=== PATIENT | female | born 1940 | race Caucasian/White ===

== ENCOUNTER 2022-02-27 10:12 | Outpatient (CLI) | payer MEDICARE, SELFPAY ==
[2022-02-27 15:02] LABS: Albumin* 4.2 g/dL (3.3-5.0)
[2022-02-27 15:03] LABS: Chloride* 106 mmol/L (96-114); Potassium* 4.5 mmol/L (3.6-5.1); Sodium* 141 mmol/L (135-149)
[2022-02-27 15:05] LABS: Alkaline Phosphatase* 61 U/L (40-150); Aspartate Amino Transferase* 32 U/L (12-35); Bilirubin Total* 0.6 mg/dL (0.1-1.5); Blood Urea Nitrogen* 18 mg/dL (7-30); Carbon Dioxide* 30 mmol/L (20-32); Cholesterol* 183 mg/dL (90-199); Creatinine* 0.8 mg/dL (0.5-1.5); Estimated Glomerular Filt Rate 73 ml/min; Total Protein* 6.9 g/dL (6.0-8.3)
[2022-02-27 15:06] LABS: Alanine Aminotransferase* 23 U/L (4-35); Calcium* 9.7 mg/dL (8.4-10.6); Glucose* 99 mg/dL (60-115); HDL Cholesterol* 75 mg/dL (>=50); LDL Cholesterol Calculated 81 mg/dL (<100); Triglycerides* 136 mg/dL (40-149)
== END 2022-02-27 10:13 | disposition home or self-care (01) ==
PROVIDERS: PCP Physician Assistant Medical; Visit Provider Physician Assistant Medical
DX: Z00.00 Encounter for general adult medical examination without abnormal findings (principal); E03.8 Other specified hypothyroidism; E78.5 Hyperlipidemia, unspecified; I10 Essential (primary) hypertension
CPT/HCPCS: 80053; 80061; 84443

== ENCOUNTER 2022-04-09 14:26 | Outpatient (CLI) | payer MEDICARE, SELFPAY ==
--- NOTE | 2022-04-09 15:00 | CRLHL7_ITS ---
For Patients: As a result of the Cures Act, medical imaging exams and procedure reports are released immediately into your electronic medical record. You may view this report before your referring provider. If you have questions, please contact your health care provider. DXA BONE MINERAL DENSITY STUDY, 04/09/2022 Reason for exam: Screening. Current height (inches): 65.0 Weight (lbs.): 148.0 Menopause age: 43 Ethnicity: White 1. Have you had a previous hip or vertebral fracture? No. 2. Have you had any fractures during your adult life which did not result from significant trauma (e.g., auto accident)? No. 3. Did either of your parents have a hip fracture? No. 4. Do you smoke? No. 5. Have you ever taken Glucocorticoids? No. 6. Do you have rheumatoid arthritis? No. 7. Do you have secondary osteoporosis? Yes. 8. Do you drink 3 or more alcoholic drinks per day? No. 9. Are you being treated for osteoporosis? Yes. 10. Have you ever taken any of the following medications: Actonel, Evista, Fosamax, Miacalcin, Reclast, Boniva, Forteo, HRT (i.e., estrogen/hormone therapy), Protelos, Prolia, Vitamin D, Calcium, other ??? please specify. ANSWER: Yes; Fosamax, vitamin D, HEART RATE, calcium. 11. Do you have any of the following medical conditions: Anorexia or bulimia, asthma or emphysema, end stage renal disease, hyperparathyroidism, any seizure disorders, cancer, inflammatory bowel diseases, hysterectomy, other ??? please specify. ANSWER: Yes; hysterectomy. 12. What was your maximum height (inches)? 66. 13. Do you perform weightbearing exercise regularly? No. 14. Do you regularly consume dairy products? No. 15. Do you drink caffeinated beverages? Yes. 16. At what age did your period start? 10. 17. Are you premenopausal? No. 18. How many full-term pregnancies have you had? 1. 19. Have you ever missed your period for more than 6 months in a row (not including or menopause)? No. TECHNIQUE: Bone mineral density study was performed using the [employer]. FINDINGS: The results of the study expressed as bone mineral density (BMD) are as follows: Lumbar Spine L1 to L4: BMD: 1.069 g/cm2. T-score: 0.2. Z-score: 3.0. Neck Left: BMD: 0.639 g/cm2. T-score: -1.9. Z-score: 0.6. Right: BMD: 0.642 g/cm2. T-score: -1.9. Z-score: 0.6. Total Left: BMD: 0.736 g/cm2. T-score: -1.7. Z-score: 0.6. Right: BMD: 0.683 g/cm2. T-score: -2.1. Z-score: 0.2. IMPRESSION: Osteopenia. COMPARISON: Compared with scan of 04/04/2020, the bone mineral density has increased by 2.9% at the spine and increased by 4.4% at the hip. *Comparison exams done prior to 08/2019 were performed on different unit, [facility]. PARDEEP HOYOS M.D. Diagnostic Radiologist [email or web address] Transcribed: 4:[address]/Dictated by: Pardeep Hoyos MD @ 04/09/2022 3:42:00 PM (Electronically Signed)
== END 2022-04-09 14:27 | disposition home or self-care (01) ==
LOC: RAD 14:28
PROVIDERS: PCP Physician Assistant Medical; Visit Provider Physician Assistant Medical
DX: Z13.820 Encounter for screening for osteoporosis (principal); M85.89 Other specified disorders of bone density and structure, multiple sites; Z78.0 Asymptomatic menopausal state
CPT/HCPCS: 77080

== ENCOUNTER 2022-06-11 10:03 | Outpatient (CLI) | payer MEDICARE, SELFPAY | END 2022-06-11 10:04 | disposition home or self-care (01) | LOC: NFLDREF 06-13 02:05 | PROVIDERS: PCP Physician Assistant Medical; Referring Provider Physician Assistant Medical; Visit Provider Physician Assistant Medical | DX: N39.0 Urinary tract infection, site not specified (principal) | CPT/HCPCS: 87086 ==

== ENCOUNTER 2022-09-17 09:54 | Outpatient (CLI) | payer MEDICARE, SELFPAY ==
[2022-09-17 23:25] LABS: Free T4 Free Thyroxine* 0.91 ng/dL (0.70-1.85)
== END 2022-09-17 09:55 | disposition home or self-care (01) ==
PROVIDERS: PCP Physician Assistant Medical; Visit Provider Obstetrics & Gynecology
DX: E03.8 Other specified hypothyroidism (principal); R35.0 Frequency of micturition
CPT/HCPCS: 84439; 84443; 87086; 87186

== ENCOUNTER 2023-02-03 14:03 | Outpatient (CLI) | payer MEDICARE, SELFPAY ==
--- NOTE | 2023-02-03 14:30 | CRLHL7_ITS ---
For Patients: As a result of the Century Cures Act, medical imaging exams and procedure reports are released immediately into your electronic medical record. You may view this report before your referring provider. If you have questions, please contact your health care provider. INDICATION: Headaches. TECHNIQUE: Multiplanar multisequence noncontrast MR images acquired through the brain. COMPARISON: MRI brain 07/31/2009. FINDINGS: Prominence of the ventricles and sulci compatible with [id number] diffuse cerebral volume loss, modestly progressed. No mass effect or midline shift. Scattered FLAIR hyperintensities in the supratentorial white matter have modestly progressed, and are typical for mild chronic microvascular ischemic changes. No intracranial hemorrhage or pathologic extra-axial fluid collection. No diffusion restriction to suggest acute infarction. The major arterial flow voids of the skullbase are preserved. Thinning of the ocular lenses. Mild paranasal sinus mucosal thickening. The mastoid air cells are clear. IMPRESSION: 1. No acute infarction, mass effect, or intracranial hemorrhage. 2. Jllf-ox-brantzzy diffuse cerebral volume loss and mild chronic microvascular ischemic changes have modestly progressed compared to the prior MRI. Dictated by Go Magallon MD @ 02/03/2023 9:19:50 PM (Electronically Signed)
== END 2023-02-03 14:04 | disposition home or self-care (01) ==
LOC: MRI 14:06
PROVIDERS: PCP Physician Assistant Medical; Visit Provider Physician Assistant Medical
DX: R51.9 Headache, unspecified (principal); I67.82 Cerebral ischemia
CPT/HCPCS: 70551

== ENCOUNTER 2023-03-03 09:36 | Outpatient (CLI) | payer MEDICARE, SELFPAY | END 2023-03-03 09:37 | disposition home or self-care (01) | LOC: NFLDREF 03-05 08:17 | PROVIDERS: PCP Physician Assistant Medical; Referring Provider Physician Assistant Medical; Visit Provider Physician Assistant Medical | DX: I10 Essential (primary) hypertension (principal); R11.2 Nausea with vomiting, unspecified; K25.9 Gastric ulcer, unspecified as acute or chronic, without hemorrhage or perforation; E03.8 Other specified hypothyroidism; E78.2 Mixed hyperlipidemia; F41.9 Anxiety disorder, unspecified; K21.00 Gastro-esophageal reflux disease with esophagitis, without bleeding; N39.41 Urge incontinence; M81.0 Age-related osteoporosis without current pathological fracture | CPT/HCPCS: 80053; 80061; 84443 ==

== ENCOUNTER 2023-03-20 09:56 | Outpatient (CLI) | payer MEDICARE, SELFPAY | END 2023-03-20 09:57 | disposition home or self-care (01) | LOC: NFLDREF 03-22 10:26 | PROVIDERS: PCP Physician Assistant Medical; Referring Provider Physician Assistant Medical; Visit Provider Family Medicine | DX: R35.0 Frequency of micturition (principal); M54.50 Low back pain, unspecified | CPT/HCPCS: 87086; 87186 ==

== ENCOUNTER 2023-10-20 14:45 | Outpatient (RCR) | payer MEDICARE, SELFPAY ==
--- NOTE | 2023-09-29 15:19 | PT.OPE ---
PT [facility] PT [facility] Out[facility] Eval Start: 09/28/23 17:15 Freq: Status: Active Protocol: Document 09/29/23 13:41 LSL (Rec: 09/29/23 15:07 LSL [id number]) E-signed By Brianna Heller PT Physical Therapy Outpatient Evaluation Insurance Information Recert Due Date 12/28/23 Insurance Name Medicare B,[employer] Insurance Information/Comments replacement plan PPO Medical Diagnosis chronic neck pain Treating Diagnosis impaired ROM, weakness, pain Referring ALICE Finch Subjective Subjective Pt. reports she had COVID in the end of December and she fell or passed out and hit her armoire. She hit her head when she fell and since then I have had so much neck and head pain. Pt. reports her pain is worst in the morning and rates it a 9/10 and it radiates to the top of her head and it feels like it's going to blow off and radiates into my shoulders and my arm feels weak and shaky. She reports a hot shower really helps make her feel better and then after she is up and functioning for the day she may need an OTC pain med in the afternoon as her headache starts to return. Pt. is R hand dominant. PMH: osteoporosis DIAGNOSTIC - cervical x-rays Findings: Disc space narrowing endplate hypertrophy throughout the cervical spine greatest at C3-4, C4-5 and C5- 6 and C6-7. Grade 1 anterolisthesis at C4-5 and C7 -T1. Diffuse facet arthrosis. Pain Comments 9/10 worst, 1-2/10 best Date of Last Physician Visit 09/22/23 Current Work Status Retired Precautions Therapy Limitations/Systems Review Other Medical Problem Objective Range of Motion AROM cervical flexion WNL, extension 25% with increased excursion on the L, B rotation 50%, B LF 10% shoulders - WFL B with pulling in mid to lower thoracic with (HBB) IR PROM - limited in all planes except flexion but without anything remarkably painful Strength Cervical - all 5/5 with flexion causing pain at the C- T junction Shoulders - grossly 4+-5/5 with hor abduction R 4/5, L 3+ /5 and B scaption 4/5 Talent Coordinator - R 43, L 41 Palpation suboccipital region very tender, B scalenes very tight and tender, B SCM R>L tight and tender, Posture mild forward head and dowager' s hump, laying supine head is rotated R and when corrected to neutral she can maintain but she feels crooked. Sensation/Reflexes Compression and distraction negative Reflexes - intact B Other/Pertinent Objective Joint Play - tender to AP at C3, C4, R mid cervical downglides restricted Assessment Assessment/Impression Pt. is an 83 y/o female who presents with chronic cervical pain that began after hitting her head during a fall when she had COVID last December. She is having chronic headaches that are most significant in the morning. She was concerned about the noise she hears when she turns her neck but she was reassured that this is common with arthritic changes and is nothing to be concerned about and she was also relieved to hear that her tight muscles at the base of her neck are causing her severe headaches and that it isn't a tumor. She has a resting position of R cervical rotation with muscular tenderness and tension in the suboccipital region and with decreased cervical mobility especially in the mid to lower cervical region on the R. She will benefit from PT utilizing manual therapy, therex, NM re- ed and modalities prn to improve her mobility and decrease tension in her cervical region. Primary Functional Limitations getting up from sleeping Plan of Care Rehabilitation Potential Good Physical Therapy Goals SHORT TERM GOALS: (3 weeks) 1. Pt. to have 4/5 or greater shoulder strength to support her neck. 2. Pt. to report decreased headache intensity to less than 5/10 when she awakes. 3. Pt. to report decreased need for OTC pain meds in midafternoon to less than 2x/ week. BREAD ROOM HAND GOALS: (6 weeks) 1. Pt. to report pain of no greater than 2/10 when she wakes in the morning. 2. Pt. to have improved cervical mobility in the R mid to lower cervical spine to allow more lateral flexion and equal extension. Coordination/Communication With Referral Source Treatment Plan/Direct Interventions Joint Mobilization,Manual Therapy,Neuromuscular Re-ed, Self-Care/Home Management, Therapeutic Exercises Frequency/Duration 2x/week 4 weeks Patient Will Be Discharged From Therapy Completion of LTG(s),Skills Plateau,Independent w/HEP, Independently Progressing Evaluation Billing Untimed Code Treatment Minutes 35 Complexity Low Certification Information Initial Certification Date 09/29/23 Ending Certification Date 12/28/23 Provider Signature Required Yes Provider Signature Shows Agreement With POC & Medical Necessity Physician NPI Number Write NPI# Here Physician Comment/Change : Physician Signature & Date Requested Please Sign/Date Here
== END 2024-01-05 10:26 | disposition home or self-care (01) ==
PROVIDERS: PCP Physician Assistant Medical; Visit Provider Physician Assistant Medical
DX: M54.2 Cervicalgia (principal); G89.29 Other chronic pain; R53.1 Weakness; Z51.89 Encounter for other specified aftercare
CPT/HCPCS: 97110; 97140; 97161

== ENCOUNTER 2024-01-26 09:33 | Outpatient (CLI) | payer MEDICARE, SELFPAY | END 2024-01-26 09:34 | disposition home or self-care (01) | LOC: NFLDREF 01-27 11:56 | PROVIDERS: PCP Physician Assistant Medical; Referring Provider Physician Assistant Medical; Visit Provider Physician Assistant Medical | DX: N30.00 Acute cystitis without hematuria (principal) | CPT/HCPCS: 87086; 87186 ==

== ENCOUNTER 2024-03-15 08:49 | Outpatient (CLI) | payer MEDICARE, SELFPAY | END 2024-03-15 08:50 | disposition home or self-care (01) | LOC: NFLDREF 03-16 05:35 | PROVIDERS: PCP Physician Assistant Medical; Referring Provider Physician Assistant Medical; Visit Provider Physician Assistant Medical | DX: E78.2 Mixed hyperlipidemia (principal); I10 Essential (primary) hypertension; E03.8 Other specified hypothyroidism; M81.0 Age-related osteoporosis without current pathological fracture | CPT/HCPCS: 80053; 80061; 84439; 84443 ==

== ENCOUNTER 2024-04-11 13:37 | Emergency (ER) | payer MEDICARE, SELFPAY ==
[2024-04-11] VITALS (8 sets, daily range): BP systolic 110–163; BP diastolic 60–97; PULSE 71–87; RESP 18; TEMP 35.7; O2SAT 89–100; BMI 22.6
[2024-04-11 14:14] LABS: Basophils Percent Auto 0.4 % (0.0-3.0); Eosinophils Percent Auto 1.7 % (0.0-7.0); Hematocrit 39.6 % (33.0-51.0); Hemoglobin* 12.9 gm/dL (12.0-16.0); Immature Granulocytes Pct Auto 0.4 %; Lymphocytes Percent Auto 12.5 % (20-44); Mean Corpuscular HGB Conc 33 gm/dL (32-36); Mean Corpuscular Hemoglobin 30 pg (26-34); Mean Corpuscular Volume 93 fL (80-100); Monocytes Percent Auto 7.9 % (0.0-11.0); Neutrophils Percent Auto 77.1 % (42.0-72.0); Platelet Count* 220 K/uL (140-440); RDW Coefficient of Variation % 13.3 % (11.5-15.5); Red Blood Count 4.26 m/uL (4.00-5.20); White Blood Count* 11.81 K/uL (4.50-11.00)
[2024-04-11] MEDS: MECLIZINE HCL 25 MG TABLET PO ×2 (14:19→14:59)
[2024-04-11 14:26] LABS: Slide Review Reflex No
[2024-04-11 14:28] LABS: Chloride* 103 mmol/L (96-114); Potassium* 4.3 mmol/L (3.6-5.1); Sodium* 136 mmol/L (135-149)
[2024-04-11 14:31] LABS: Anion Gap 11 mEq/L (7-15); Blood Urea Nitrogen* 20 mg/dL (7-30); Carbon Dioxide* 22 mmol/L (20-32); Creatinine* 0.9 mg/dL (0.5-1.5); Estimated Glomerular Filt Rate 62 ml/min
[2024-04-11 14:32] LABS: Calcium* 9.6 mg/dL (8.4-10.6); Glucose* 170 mg/dL (60-115)
--- NOTE | 2024-04-11 14:36 | ED_ITS ---
HPI - General Adult General Chief complaint: Nausea/Vomiting Stated complaint: nausea, vomiting Time Seen by Provider: 04/11/24 13:45 History of Present Illness HPI narrative: This 84-year-old female comes in by ambulance because of vertigo, nausea, and vomiting. She states that these symptoms came on rather suddenly prior to arrival. She does report some upper epigastric abdominal discomfort. She does not have any other neurologic findings besides vertigo symptoms. She states th at if she remains still and look straight ahead her vertigo symptoms are minimal or absent. It is distinctly worsened when turning her head in any direction. Related Data Home Medications ?Medication ?Instructions ?Recorded ?Confirmed calcium 600 mg (as 1 tab PO QDAY 02/27/22 03/24/24 carbonate)-vitamin D3 20 mcg (800 unit) tablet (Caltrate with Vitamin D3) omeprazole 20 mg capsule,delayed 20 mg PO .prn 03/24/24 release Previous Rx's ?Medication ?Instructions ?Recorded sertraline 50 mg tablet 50 mg PO DAILY #90 tabs 01/29/24 alendronate 70 mg tablet (Fosamax) 70 mg PO QWEEK 3 months #12 tabs 02/04/24 lisinopril 30 mg tablet 15 mg (1/2 x 30 mg) PO DAILY #45 03/15/24 tabs simvastatin 20 mg tablet 20 mg PO DAILY #90 tabs 03/15/24 solifenacin 10 mg tablet 10 mg PO QDAY #90 tabs 03/15/24 Allergies Allergy/AdvReac Type Severity Reaction Status Date / Time No Known Drug Allergies Allergy Verified 03/24/24 09:35 Review of Systems Status of ROS: Reports: 10 or more systems reviewed and unremarkable except as noted in History and below Narrative: Constitutional: No fevers, no weight gain or loss. Eyes: No discharge. No vision changes. HENT: No congestion, no sore throat, no ear pain. Cardiovascular: No chest pain, no palpitations. Respiratory: No shortness of breath, no wheezes, no cough. Gastrointestinal: No abdominal pain, no vomiting, no diarrhea. Genitourinary: No dysuria, no hematuria. Musculoskeletal: Normal range of motion. Skin: No rashes, no pruritis. Neurological: No weakness, sensory change, speech change. Vertigo symptoms as described above. Endo/Heme/Allergies: No bruising or bleeding. No polydipsia. Pysch: no suicidality, no anxiety, no insomnia. All other systems reviewed and are negative. 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) ?L90.0 - Lichen sclerosus et atrophicus (ICD-10) Gastric ulcer ?K25.9 - Gastric ulcer, unspecified as acute or chronic, without hemorrhage or perforation (ICD-10) Urinary tract infection ?N39.0 - Urinary tract infection, site not specified (ICD-10) Uterine leiomyoma ?D25.9 - Leiomyoma of uterus, unspecified (ICD-10) Surgical History History of hysterectomy with oophorectomy History of eye surgery ?Z98.890 - Other specified postprocedural states (ICD-10) History of colonoscopy ?Z98.890 - Other specified postprocedural states (ICD-10) Family History Mother Breast cancer Diabetes High blood pressure High cholesterol Father Coronary artery disease High cholesterol Sister Coronary artery disease Diabetes High cholesterol Social History Narrative: does not drink alcohol, does not use illicit drugs, nonsmoker What is your current living situation?: I presently have a place to live Problems where you live: no known problems In the past 12 months, utilities in danger of being shut off: no In past 12 months, lack of transportation kept you from medical appts, meetings, work, or getting things needed for daily living: no In the past 12 mos, have been you worried that your food would run out before you had money to buy more?: never true In the past 12 mos, the food you bought just didn't last and you didn't have money to buy more?: never true Smoking Status: Never smoker How often does anyone, including family, friends and others, physically hurt you : never How often does anyone, including family, friends and others, insult or talk down to you: never How often does anyone, including family, friends and others, threaten you with harm: never How often does anyone, including family, friends and others, scream or curse at you: never Exam Narrative: Exam Narrative: Constitutional: Well-developed, well-nourished, no acute distress. HEENT: Normocephalic, atraumatic. Neck: Normal range of motion. Nontender. Supple. Heart: Regular. No murmurs. Normal rate. Intact distal pulses. Lungs: Clear to auscultation. No chest discomfort. No wheezes, rhonchi, or rales . Abdomen: Normal bowel sounds. Nontender. No rebound tenderness. Genitalia: Deferred. Back: No midline tenderness. Normal range of motion. Extremities: Normal range of motion. No injury. Skin: Intact. No rash. Warm. No erythema or pallor. Neurologic: No altered sensation. No weakness. Alert and oriented. No facial asymmetry. Tongue is midline. Sqwoge-hb-eplv is normal. No pronator drift. Cottage Cheese Maker strength is equal bilaterally. Able to raise each leg from the bed. Psychiatric: No suicidality. No anxiety or depression. No insomnia. Nursing notes and vitals signs are reviewed. Const: Vital Signs, click to edit/add: Vital Signs - 24 hr 04/11/24 13:39 04/11/24 14:10 04/11/24 14:32 Temperature 96.3 F L Pulse Rate 71 73 Pulse Rate [Pulse Oximeter] 84 Respiratory Rate 18 Blood Pressure 150/72 H 156/71 H Blood Pressure [Ri ght Upper Arm] 163/97 H Pulse Oximetry 98 100 100 Oxygen Delivery Me thod Room Air 04/11/24 15:02 04/11/24 15:31 Temperature Pulse Rate 74 79 Pulse Rate [Pulse Oximeter] Respiratory Rate 18 Blood Pressure 110/60 122/71 Blood Pressure [Ri ght Upper Arm] Pulse Oximetry 96 89 Oxygen Delivery Me thod Course Vital Signs Vital signs: Initial Vital Signs Temperature 96.3 F L 04/11/24 13:39 Temperature Source Temporal Artery Scan 04/11/24 13:39 Pulse Rate 84 04/11/24 13:39 Pulse Rhythm Regular 04/11/24 13:39 Respiratory Rate 18 04/11/24 13:39 Blood Pressure 163/97 H 04/11/24 13:39 Blood Pressure Mean 119 H 04/11/24 13:39 Blood Pressure Position Sitting 04/11/24 13:39 Pulse Oximetry 98 04/11/24 13:39 Oxygen Delivery Method Room Air 04/11/24 13:39 Vital Signs Temperature 96.3 F L 04/11/24 13:39 Pulse Rate 84 04/11/24 13:39 Respiratory Rate 18 04/11/24 13:39 Blood Pressure 163/97 H 04/11/24 13:39 Pulse Oximetry 98 04/11/24 13:39 Oxygen Delivery Method Room Air 04/11/24 13:39 Temperature 96.3 F L 04/11/24 13:39 Pulse Rate 79 04/11/24 15:31 Respiratory Rate 18 04/11/24 15:31 Blood Pressure 122/71 04/11/24 15:31 Pulse Oximetry 89 04/11/24 15:31 Oxygen Delivery Method Room Air 04/11/24 13:39 Medications Administered Medications: Discontinued Medications Generic Name Dose Route Start Last Admin Trade Name Cyndee PRN Reason Stop Dose Admin Lorazepam 0.25 mg 04/11/24 14:35 04/11/24 14:41 Lorazepam 2 Mg/Ml Inj IV 04/11/24 14:36 0.25 mg ONCE ONE Administration Meclizine HCl 25 mg 04/11/24 14:17 04/11/24 14:19 Meclizine Hcl 25 Mg Tablet PO 04/11/24 14:18 25 mg ONCE ONE Administration Meclizine HCl 25 mg 04/11/24 14:35 04/11/24 14:59 Meclizine Hcl 25 Mg Tablet PO 04/11/24 14:36 25 mg ONCE ONE Administration Medical Decision Making [facility] Narrative Medical decision making narrative: This patient comes in with rather sudden onset of vertigo symptoms with associated nausea and and some vomiting. She arrives here with normal vital signs. Her neurologic exam is completely normal. Her symptoms are minimal or absent if she remains still. The patient did receive 8 mg of Zofran intravenously by ambulance on the way here. She did receive an oral dose of meclizine here and states that she is feeling significantly better. EKG and labs returned with reassuring results. The patient did receive an IV dose of Toradol 15 mg as she reports of [id number] headache. She was okay to get up and ambulate. I did provide prescriptions for Zofran and meclizine. Lab Data Labs: Lab Results 04/11/24 04/11/24 Range/Units 13:56 14:04 WBC 11.81 H (4.50-11.00) K/uL RBC 4.26 (4.00-5.20) m/uL Hgb 12.9 (12.0-16.0) gm/dL Hct 39.6 (33.0-51.0) % MCV 93 (80-100) fL MCH 30 (26-34) pg MCHC 33 (32-36) gm/dL RDW Coeff of Shilpa 13.3 (11.5-15.5) % Plt Count 220 (140-440) K/uL Neut % (Auto) 77.1 H (42.0-72.0) % Lymph % (Auto) 12.5 L (20-44) % Walton % (Auto) 7.9 (0.0-11.0) % Eos % (Auto) 1.7 (0.0-7.0) % Baso % (Auto) 0.4 (0.0-3.0) % Neut # (Auto) 9.10 H (1.7-7.0) K/uL Lymph # (Auto) 1.50 (0.90-2.90) K/uL Walton # (Auto) 0.90 (0.00-0.90) K/UL Eos # (Auto) 0.20 (0.00-0.50) K/uL Baso # (Auto) 0.00 (0.00-0.30) K/uL Abs Immat Gran (auto) 0.00 (0.00-0.30) K/uL Imm/Tot Granulo (auto) 0.4 % Sodium 136 (135-149) mmol/L Potassium 4.3 (3.6-5.1) mmol/L Chloride 103 (96-114) mmol/L Carbon Dioxide 22 (20-32) mmol/L Anion Gap 11 (7-15) mEq/L BUN 20 (7-30) mg/dL Creatinine 0.9 (0.5-1.5) mg/dL Estimated Creat Clear 37.80 Estimated GFR 62 ml/min Glucose 170 H (60-115) mg/dL Calcium 9.6 (8.4-10.6) mg/dL POC Troponin I 0.00 L (0.01-0.04) ng/ml ECG Data Attestation: I personally reviewed and interpreted this ECG as follows: Interpretation: Normal sinus rhythm. Rate is 76 beats per minute. There are no ST or T-wave abnormalities. Discharge Plan Discharge Clinical Impression: Acute vestibular neuritis Patient Disposition: Home, Self-Care Condition: Improved Additional Instructions: Take medication as needed and directed. Increase activity as tolerated. Follow up with MD return if worsening. Prescriptions: No Action calcium carbonate-vitamin D3 [Caltrate with Vitamin D3] 600 mg-20 mcg (800 unit) tablet 1 tab PO QDAY solifenacin 10 mg tablet 10 mg PO QDAY Qty: 90 3RF lisinopril 30 mg tablet 15 mg PO DAILY Qty: 45 3RF simvastatin 20 mg tablet 20 mg PO DAILY Qty: 90 3RF omeprazole 20 mg capsule,delayed release(DR/EC) 20 mg PO .prn sertraline 50 mg tablet 50 mg PO DAILY Qty: 90 1RF alendronate [Fosamax] 70 mg tablet 70 mg PO QWEEK 90 Days Qty: 12 0RF Follow Up/Referrals: Osiris Matute PA-C [Primary Care Provider] - Stand Alone Forms: ClearAccess Info Instructions
[2024-04-11] MEDS: LORazepam 2 MG/ML inj 0.25 MG IV (14:41)
--- OUTSIDE RECORDS SUMMARY | 2024-04-11 14:59 | XMS_ITS | Clinical Summary ---
Author Organization [facility] Address [place], [place] [address] Care Team Providers Care Homicide Investigator Name Role Phone Chantelle Lima KRISTIN Primary Care Provider [phone] Allergies Active Allergy Reactions Criticality Noted Date Comments Amoxicillin Insomnia 09/19/2013 Medications CENTRUM SILVER TAB 1 tab daily ? 0 01/29/2005 Active CALCIUM CHEW 500 MG-100 UNIT-40 MCG TAB 1 tab daily ? 0 01/29/2005 Active simvastatin (ZOCOR) 20 mg tablet 1 11/21/2015 Active sertraline (ZOLOFT) 50 mg tablet 2 11/05/2015 Active lisinopril (PRINIVIL; ZESTRIL) 10 mg tablet Take 1 tablet by mouth once daily. 0 12/10/2015 Active Active Problems Problem Noted Date Diagnosed Date Gastric ulcer 05/12/2014 Overview (05/12/2014): EGD 04/2014 ulcer, no follow up RHINITIS - ALLERGIC 03/10/2005 HYPERTENSION 08/18/2002 HRT 08/18/2002 LAGOPHTHALMOS NOS-OU 09/29/2000 Resolved Problems Problem Noted Date Diagnosed Date Resolved Date Regular astigmatism 02/06/2006 08/13/19 13 Presbyopia 02/06/2006 08/12/2012 Hypermetropia 02/06/2006 08/12/2012 Senile nuclear sclerosis 02/06/2006 Keratoconjunctivitis, unspecified 10/30/2005 02/06/2006 Open wound of nose, unspecif ied site, without mention of complication 12/11/2003 02/17/2006 Contusion of face, scalp, an d neck except eye(s) 12/11/2003 02/17/2006 Immunizations Name Administration Dates Next Due Influenza, IIV3 (Age >=3 years) 03/18/2004 Td (Age >=7 Years) 10/27/2003 Family History Medical History Relation Name Comments Diabetes Father Diabetes Mother Genetic Other No CAD.~Brother - DM, SD fatal~cancer~heart disease Relation Name Status Comments Father Mother Other Social History Tobacco Use Types Packs/Day Years Used Date Smoking Tobacco: Never Smokeless Tobacco: Never Tobacco Cessation:Counseling Given: Yes Alcohol Use Standard Drinks/Week Comments Yes 0 (1 standard drink = 0.6 oz pur e alcohol) infrequently Comments No Sex and Gender Information Value Date Recorded Sex Assigned at Not on file Legal Sex Female 5:18 AM QUALITY ASSURANCE MON[employer]OR [employer] Gender Identity Not on file Sexual Orientation Not on file Obstetrics History Para Term AB IAB SAB Ectopic Multiple Livin g Live Births 1 1 1 0 0 0 0 0 1 Date Outcome GA Total Labor Labor/2nd/3rd Weight Sex Type Anes PTL Roxanne A1 A5 Name Clin Term Last Filed Vital Signs Vital Sign Reading Time Taken Comments Blood Pressure 133/79 02/26/2016 4:12 PM QUALITY ASSURANCE MONITOR BODY Pulse 72 02/26/2016 4:12 PM QUALITY ASSURANCE MONITOR BODY Temperature 36.8 C (98.2 F) 03/02/2014 4:28 PM QUALITY ASSURANCE MONITOR BODY Respiratory Rate 16 10/27/2003 12:00 AM CDT Oxygen Saturation 99% 03/17/2014 8:38 AM QUALITY ASSURANCE MONITOR BODY Inhaled Oxygen Concentration - - Weight 63 kg (138 lb 12.8 oz) 03/02/2014 4:28 PM QUALITY ASSURANCE MONITOR BODY Height 166.4 cm (5' 5.5) 02/17/2006 8:20 AM QUALITY ASSURANCE MONITOR BODY Body Mass Index 22.75 02/17/2006 8:20 AM QUALITY ASSURANCE MONITOR BODY Plan of Treatment Health Maintenance Due Date Last Done Comments Tdap 1951 Depression screening for age 12+ 1950 BMI (ht and wt on same day) for age 18+ 01/13/1956 Zoster (shingles) series for age 50+ (1 of 2) 01/12/19 88 DEXA/DXA scan for age 65+ 2003 Pneumococcal series for age 50+ (1 of 1 - PCV) 003 RSV vaccine for adults or pr egnancy (1 - 1-dose 75+ series) 2013 Tetanus booster 10/26/2013 10/27/2003 COVID-19 vaccine series (2023- season) 4 Influenza for age 65+ 11/29/2023 03/18/2004 Insurance [employer]UE [employer]Y [employer] BLUE MR PB ONLY Care Teams Homicide Investigator Relationship Specialty Start Date End Date ClarenceJune KRISTIN Parson PCP - General Physician Ride Operator 02/09/14
[2024-04-11] MEDS: KETOROLAC 15 MG/ML inj IVP (15:59)
[2024-04-11] MEDS: dexAMETHasone 10 MG/ML inj IV (16:24)
== END 2024-04-11 17:11 | disposition home or self-care (01) ==
PROVIDERS: Emergency Provider Emergency Medicine Emergency Medical Services; PCP Physician Assistant Medical
DX: H81.23 Vestibular neuronitis, bilateral (principal)
CPT/HCPCS: 36415; 80048; 82962; 84484; 85025; 93005; 96374; 96375; 99283; 99284; A9270; J1100; J1885; J2060

== ENCOUNTER 2024-04-18 12:53 | Outpatient (CLI) | payer MEDICARE, SELFPAY | END 2024-04-18 12:54 | disposition home or self-care (01) | LOC: NFLDREF 04-20 02:00 | PROVIDERS: PCP Physician Assistant Medical; Referring Provider Physician Assistant Medical; Visit Provider Physician Assistant Medical | DX: R35.0 Frequency of micturition (principal); N39.0 Urinary tract infection, site not specified; N30.00 Acute cystitis without hematuria | CPT/HCPCS: 87086; 87186 ==

== ENCOUNTER 2024-04-19 09:55 | Outpatient (RCR) | payer MEDICARE, SELFPAY ==
--- NOTE | 2024-04-28 12:36 | PT.OPE ---
[facility] PT [facility] Out[facility] Eval Start: 04/28/24 12:26 Freq: Status: Active Protocol: Document 04/19/24 20:34 NORMA (Rec: 04/28/24 12:36 NORMA [id number]) E-signed By Sergey Rayo DPT, MS Physical Therapy Outpatient Evaluation Insurance Information Recert Due Date 07/20/24 Insurance Name Medicare B Medical Diagnosis Vestibular neuronitis, unspecified ear Treating Diagnosis Dizziness, sensory disorganization, imbalance. Subjective Preferred Name Rose Keith Patient is an 84 y.o. female who presents to PT following an episode of severe dizziness 2 weeks ago requiring a trip to the ED. Pt describes a high level of dizziness suddenly while looking down requiring her to tineo to the bathroom to vomit. Describes sxs that day as severe disorientation with all head and body movements. Sxs improved with meclizine and IV nausea med but she continues to experience lightheadedness with getting out of bed in the morning. Also notes increased CS pain and HAs since onset. Denies experiencing room spinning dizziness. Pt has also felt weaker since sx onset. Also notes a complex condition that affects the control of her eyes and eyelids with previous past surgeries. PMH of CS OA. AGGR factors: supine to sit transfers, uneven surfaces, CS rotation. ALLEV factors: rest, slower movement. 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 Negative BPPV testing with pt displaying overreliance on vision for balance, especially on compliant surfaces and with dynamic gait activities. Negative visual testing today despite her complex eye condition. She responded well to MT, stretching and balance exercises with decreased sxs following today?s session. She would benefit from continued skilled therapy to address these limitations. Primary Functional Limitations Supine to sit transfers, uneven surfaces, CS rotation. Plan of Care Physical Therapy Goals Therapy goals to be completed in 10 weeks: 1. Pt will be I and compliant with her HEP for mcc sx management. 2. Patient will report resolution of dizziness sxs with all daily and work activities for >6 consecutive days. 3. Patient will display improved Romberg balance on firm and foam surfaces with eyes closed >6 sec with minimal sway to improve safety walking in dark and on compliant surfaces. 4. Pt will report >75% improvement in DHI questionnaire to significantly improve andry to daily activities. Coordination/Communication With Referral Source Treatment Plan/Direct Interventions Canalith Repositioning,Joint Mobilization,Manual Therapy, Neuromuscular Re-ed, Therapeutic Exercises Frequency/Duration 1x per week for at least 6-10 visits, decreasing frequency as able. Patient Will Be Discharged From Therapy Completion of LTG(s),Skills Plateau,Independent w/HEP, Independently Progressing Evaluation Billing Untimed Code Treatment Minutes 22 Complexity Moderate Certification Information Initial Certification Date 04/19/24 Ending Certification Date 07/20/24 Provider Signature Required Yes Provider Signature Shows Agreement With POC & Medical Necessity Physician NPI Number Write NPI# Here Physician Comment/Change : Physician Signature & Date Requested Please Sign/Date Here
== END 2024-08-17 23:59 | disposition home or self-care (01) ==
PROVIDERS: PCP Physician Assistant Medical; Visit Provider Physician Assistant Medical
DX: H81.20 Vestibular neuronitis, unspecified ear (principal); Z51.89 Encounter for other specified aftercare
CPT/HCPCS: 97110; 97162

== ENCOUNTER 2024-04-20 13:00 | Outpatient (CLI) | payer MEDICARE, SELFPAY | END 2024-04-20 13:01 | disposition home or self-care (01) | LOC: RAD 13:00 | PROVIDERS: PCP Physician Assistant Medical; Visit Provider Physician Assistant Medical | DX: Z78.0 Asymptomatic menopausal state (principal); M85.88 Other specified disorders of bone density and structure, other site | CPT/HCPCS: 77080 ==

== ENCOUNTER 2024-06-03 13:59 | Outpatient (CLI) | payer MEDICARE, SELFPAY | END 2024-06-03 14:00 | disposition home or self-care (01) | LOC: MAMMO 14:00 | PROVIDERS: PCP Physician Assistant Medical; Visit Provider Physician Assistant Medical | DX: Z12.31 Encounter for screening mammogram for malignant neoplasm of breast (principal); R92.333 Mammographic heterogeneous density, bilateral breasts | CPT/HCPCS: 77063; 77067 ==

== ENCOUNTER 2024-06-28 15:03 | Emergency (ER) | payer MEDICARE, SELFPAY ==
--- OUTSIDE RECORDS SUMMARY | 2024-06-28 15:06 | XMS_ITS | Clinical Summary ---
Author Organization [facility] Address [address] [place] [id number] Care Team Providers Care Strike Warfare/Missile Systems Officer Name Role Phone Chantelle Lima KRISTIN Primary Care Provider [phone]- [phone] Allergies Active Allergy Reactions Criticality Noted Date [...] d neck except eye(s) 12/11/2003 02/17/2006 Immunizations Immunization Administration Dates Next Due Influenza, IIV3 (Age >=3 years) 03/18/2004 Td (Age >=7 Years) 10/27/2003 Family History Medical History Relation Name Comments Diabetes Father Diabetes Mother Genetic Other No CAD.~Brother - DM, [place] fatal~cancer~heart disease Relation Name Status Comments Father [...] on file Legal Sex Female 5:18 AM DELIVERY ENGINEER Gender Identity Not on file Sexual Orientation [...] Comments Blood Pressure 133/79 02/26/2016 4:12 PM DELIVERY ENGINEER Pulse 72 02/26/2016 4:12 PM DELIVERY ENGINEER Temperature 36.8 C (98.2 F) 03/02/2014 4:28 PM DELIVERY ENGINEER Respiratory Rate 16 10/27/2003 12:00 AM CDT Oxygen Saturation 99% 03/17/2014 8:38 AM DELIVERY ENGINEER Inhaled Oxygen Concentration - - Weight 63 kg (138 lb 12.8 oz) 03/02/2014 4:28 PM DELIVERY ENGINEER Height 166.4 cm (5' 5.5) 02/17/2006 8:20 AM DELIVERY ENGINEER Body Mass Index 22.75 02/17/2006 8:20 AM DELIVERY ENGINEER Plan of Treatment Health Maintenance Due Date Last Done Comments Tdap 1949 Depression screening for age 12+ 1950 BMI (ht and wt on same day) for age 18+ 01/13/1956 Pneumococcal series for age 50+ (1 of 1 - PCV) 988 Zoster (shingles) series for age 50+ (1 of 2) 01/12/19 88 DEXA/DXA scan for age 65+ 2003 RSV vaccine for adults or pr egnancy (1 - 1-dose 75+ series) 2013 Tetanus booster 10/26/2013 10/27/2003 COVID-19 vaccine series (2023- season) 4 Influenza Vaccine (#1) 2023 03/18/2004 Insurance BLUE CROSS [place] BLUE MR PB ONLY Care Teams Strike Warfare/Missile Systems Officer Relationship Specialty Start Date End Date ClarenceJune KRISTIN Parson PCP - General Physician Independent Agent Music Education 02/09/14
[2024-06-28 15:11] VITALS: BP 142/65; PULSE 97; RESP 18; TEMP 36.6; O2SAT 98; BMI 23.3
--- NOTE | 2024-06-28 16:39 | ED_ITS ---
HPI - General Adult General Chief complaint: Unspecified Complaint, Adult Stated complaint: BM issues Time Seen by Provider: 06/28/24 16:21 History of Present Illness HPI narrative: patient presents to the emergency department complaining of constipation. Patient states for the last three days she has been unable to have a bowel movement despite having to go. Patient has tried enemas at home without relief as well as tried some laxatives. Patient states she used a mirror to look at her rectum while trying to go to the bathroom and could see the stool but couldn't push it all the way out. Used toilet paper to grab a small piece off. 84-year-old woman presenting to the emergency department with concern of constipation I think. Sounds like has tried an enema at home. Is having some pain with bowel movements now. She knows the stool is there which can just get it out. She did try to grab some out earlier today. No persistent pain or fever. Has occasionally struggled with constipation. Does not think that she is retaining urine; generally feels that she is able to empty. Related Data Home Medications ?Medication ?Instructions ?Recorded ?Confirmed calcium 600 mg (as 1 tab PO QDAY 02/27/22 06/28/24 carbonate)-vitamin D3 20 mcg (800 unit) tablet (Caltrate with Vitamin D3) Previous Rx's ?Medication ?Instructions ?Recorded lisinopril 30 mg tablet 15 mg (1/2 x 30 mg) PO DAILY #45 03/15/24 tabs simvastatin 20 mg tablet 20 mg PO DAILY #90 tabs 03/15/24 solifenacin 10 mg tablet 10 mg PO QDAY #90 tabs 03/15/24 ondansetron HCl 4 mg tablet 4 mg PO Q6H #20 tabs 04/11/24 meclizine 25 mg tablet 25 mg PO QID #60 tabs 04/18/24 omeprazole 20 mg capsule,delayed 20 mg PO DAILY #90 caps 04/19/24 release alendronate 70 mg tablet 70 mg PO QWEEK #12 tabs 04/20/24 sertraline 50 mg tablet 50 mg PO DAILY #90 tabs 06/14/24 Allergies Allergy/AdvReac Type Severity Reaction Status Date / Time No Known Drug Allergies Allergy Verified 06/28/24 15:18 PFSH PFS Medical History 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) ?L90.0 - Lichen sclerosus et atrophicus (ICD-10) Gastric ulcer ?K25.9 - Gastric ulcer, unspecified as acute or chronic, without hemorrhage or perforation (ICD-10) Urinary tract infection ?N39.0 - Urinary tract infection, site not specified (ICD-10) Uterine leiomyoma ?D25.9 - Leiomyoma of uterus, unspecified (ICD-10) Surgical History History of hysterectomy with oophorectomy History of eye surgery ?Z98.890 - Other specified postprocedural states (ICD-10) History of colonoscopy ?Z98.890 - Other specified postprocedural states (ICD-10) Family History Mother Breast cancer Diabetes High blood pressure High cholesterol Father Coronary artery disease High cholesterol Sister Coronary artery disease Diabetes High cholesterol Social History Narrative: does not drink alcohol, does not use illicit drugs, nonsmoker What is your current living situation?: I presently have a place to live Problems where you live: no known problems In the past 12 months, utilities in danger of being shut off: no In past 12 months, lack of transportation kept you from medical appts, meetings, work, or getting things needed for daily living: no In the past 12 mos, have been you worried that your food would run out before you had money to buy more?: never true In the past 12 mos, the food you bought just didn't last and you didn't have money to buy more?: never true Smoking Status: Never smoker How often do you have a drink containing alcohol: never AUDIT-C Alcohol total score: 0 Non-prescribed substance use: denies use How often does anyone, including family, friends and others, physically hurt you : never How often does anyone, including family, friends and others, insult or talk down to you: never How often does anyone, including family, friends and others, threaten you with harm: never How often does anyone, including family, friends and others, scream or curse at you: never Exam Narrative: Exam Narrative: Uncomfortable to palpation over the low pelvis. Feels a little full here. Feels like she has to urinate with this exam. No masses otherwise. Abdomen is soft. Extremities are well perfused without edema. She is breathing easily. Transitions quickly and easily otherwise without significant pain. Const: Vital Signs, click to edit/add: Vital Signs - 24 hr 06/28/24 15:11 Temperature 98 F Pulse Rate [Right Pulse Oximeter] 97 Respiratory Rate 18 Blood Pressure [Ri ght Upper Arm] 142/65 H Pulse Oximetry 98 Oxygen Delivery Me thod Room Air Documenting provider has reviewed patient's vital signs: yes Course Vital Signs Vital signs: Initial Vital Signs Temperature 98 F 06/28/24 15:11 Temperature Source Temporal Artery Scan 06/28/24 15:11 Pulse Rate 97 06/28/24 15:11 Pulse Rhythm Regular 06/28/24 15:11 Pulse Strength 3+ Normal 06/28/24 15:11 Respiratory Rate 18 06/28/24 15:11 Blood Pressure 142/65 H 06/28/24 15:11 Blood Pressure Mean 90 06/28/24 15:11 Blood Pressure Position Sitting 06/28/24 15:11 Pulse Oximetry 98 06/28/24 15:11 Oxygen Delivery Method Room Air 06/28/24 15:11 Vital Signs Temperature 98 F 06/28/24 15:11 Pulse Rate 97 06/28/24 15:11 Respiratory Rate 18 06/28/24 15:11 Blood Pressure 142/65 H 06/28/24 15:11 Pulse Oximetry 98 06/28/24 15:11 Oxygen Delivery Method Room Air 06/28/24 15:11 Temperature 98 F 06/28/24 15:11 Pulse Rate 92 06/28/24 18:45 Respiratory Rate 16 06/28/24 18:45 Blood Pressure 136/69 06/28/24 18:45 Pulse Oximetry 96 06/28/24 18:45 Oxygen Delivery Method Room Air 06/28/24 18:45 Medications Administered Medications: Discontinued Medications Generic Name Dose Route Start Last Admin Trade Name Freq PRN Reason Stop Dose Admin Docusate Sodium/Benzocaine 5 ml 06/28/24 16:55 06/28/24 17:22 Docusate Sodium/Benzocaine 5 Ml Enema NM 06/28/24 16:56 5 ml ONCE ONE Administration Magnesium Citrate 300 ml 06/28/24 18:29 06/28/24 18:42 Magnesium Citrate 300 Ml Solution PO 06/28/24 18:30 300 ml ONCE ONE Administration Medical Decision Making MDM Narrative Medical decision making narrative: Constipation is most likely the issue here. If does not make progress on this would also evaluate for potential urinary retention. Does not have acute abdomen. Indicate bowel obstruction or diverticulitis. With describe discomfort with having a bowel movement perhaps Enemeez would be initially most helpful and further enemas pending this effect. With treatment as above. Did manage would appear to be a small to moderate bowel movement. Reported feeling better and did appear relieved. We discussed next steps in treatment. I think still some continued enema would be beneficial. Given late hour she would like to have some medications to go home with. Will be supplying with a bottle magnesium citrate and another enema. See patient discharge plan for further discussion Do focus on hydration. Sending you with a bottle of magnesium citrate and an enema. You could drink half of this bottle magnesium citrate or the whole bottle; repeating tomorrow morning if no big result. If you are feeling as if there remains hard stool, would consider placing this enema. You can buy more magnesium citrate as well as enemas [id number] Otherwise over the next week or two, would take MiraLax equivalent (polyethylene glycol) 1-3 times daily adjusting to stool consistency. Medical Records Medical records reviewed: Yes I reviewed the patient's medical records Discharge Plan Discharge Clinical Impression: Constipation Patient Disposition: Home w/ Parent or Adult Condition: Improved Additional Instructions: Do focus on hydration. Sending you with a bottle of magnesium citrate and an enema. You could drink half of this bottle magnesium citrate or the whole bottle; repeating tomorrow morning if no big result. If you are feeling as if there remains hard stool, would consider placing this enema. You can buy more magnesium citrate as well as enemas [id number] Otherwise over the next week or two, would take MiraLax equivalent (polyethylene glycol) 1-3 times daily adjusting to stool consistency. Prescriptions: No Action calcium carbonate-vitamin D3 [Caltrate with Vitamin D3] 600 mg-20 mcg (800 unit) tablet 1 tab PO QDAY meclizine 25 mg tablet 25 mg PO QID Qty: 60 0RF solifenacin 10 mg tablet 10 mg PO QDAY Qty: 90 3RF lisinopril 30 mg tablet 15 mg PO DAILY Qty: 45 3RF simvastatin 20 mg tablet 20 mg PO DAILY Qty: 90 3RF ondansetron HCl 4 mg tablet 4 mg PO Q6H Qty: 20 0RF omeprazole 20 mg capsule,delayed release(DR/EC) 20 mg PO DAILY Qty: 90 3RF alendronate 70 mg tablet 70 mg PO QWEEK Qty: 12 3RF sertraline 50 mg tablet 50 mg PO DAILY Qty: 90 1RF Follow Up/Referrals: Osiris Matute, PAKymC [Primary Care Provider] - Stand Alone Forms: [facility] Info Instructions
[2024-06-28] MEDS: DOCUSATE SODIUM/BENZOCAINE 5 ML ENEMA PR (17:22)
--- OUTSIDE RECORDS SUMMARY | 2024-06-28 17:34 | XMS_ITS | Clinical Summary ---
Author Organization [facility] Address [address] [place] [id number] Care Team Providers Care Production Reproduction Manager Name Role Phone Chantelle Lima KRISTIN Primary Care Provider +1- [phone] Allergies Active Allergy Reactions Criticality Noted Date [...] Mother Genetic Other No CAD.~Brother - [place], [place] fatal~cancer~heart disease Relation Name Status Comments Father [...] on file Legal Sex Female 5:18 AM CUT OFF SAWYER LOG Gender Identity Not on file Sexual Orientation [...] Comments Blood Pressure 133/79 02/26/2016 4:12 PM CUT OFF SAWYER LOG Pulse 72 02/26/2016 4:12 PM CUT OFF SAWYER LOG Temperature 36.8 C (98.2 F) 03/02/2014 4:28 PM CUT OFF SAWYER LOG Respiratory Rate 16 10/27/2003 12:00 AM CDT Oxygen Saturation 99% 03/17/2014 8:38 AM CUT OFF SAWYER LOG Inhaled Oxygen Concentration - - Weight 63 kg (138 lb 12.8 oz) 03/02/2014 4:28 PM CUT OFF SAWYER LOG Height 166.4 cm (5' 5.5) 02/17/2006 8:20 AM CUT OFF SAWYER LOG Body Mass Index 22.75 02/17/2006 8:20 AM CUT OFF SAWYER LOG Plan of Treatment Health Maintenance Due Date [...] Vaccine (#1) 2023 03/18/2004 Insurance BLUE CROSS [place] BLUE MR [place] ONLY Care Teams Production Reproduction Manager Relationship Specialty Start Date End Date ClarenceJune KRISTIN Parson PCP - General Physician Ampoule Filler And Sealer 02/09/14
[2024-06-28] MEDS: MAGNESIUM CITRATE 300 ML SOLUTION PO (18:42)
[2024-06-28 18:45] VITALS: BP 136/69; PULSE 92; RESP 16; O2SAT 96
== END 2024-06-28 18:56 | disposition home or self-care (01) ==
PROVIDERS: Emergency Provider Family Medicine; PCP Physician Assistant Medical
DX: K59.00 Constipation, unspecified (principal)
CPT/HCPCS: 99283; 99284; A9270

== ENCOUNTER 2024-07-06 09:49 | Outpatient (CLI) | payer MEDICARE, SELFPAY | END 2024-07-06 09:50 | disposition home or self-care (01) | LOC: NFLDREF 07-11 16:41 | PROVIDERS: PCP Physician Assistant Medical; Referring Provider Physician Assistant Medical; Visit Provider Physician Assistant Medical | DX: R39.198 Other difficulties with micturition (principal); K59.01 Slow transit constipation; K64.0 First degree hemorrhoids | CPT/HCPCS: 87086 ==

== ENCOUNTER 2024-10-12 09:35 | Outpatient (CLI) | payer MEDICARE, SELFPAY | END 2024-10-12 09:36 | disposition home or self-care (01) | LOC: NFLDREF 10-14 03:20 | PROVIDERS: PCP Physician Assistant Medical; Referring Provider Physician Assistant Medical; Visit Provider Physician Assistant Medical | DX: R35.0 Frequency of micturition (principal); N39.0 Urinary tract infection, site not specified; E03.9 Hypothyroidism, unspecified | CPT/HCPCS: 84443; 87086 ==

== ENCOUNTER 2024-10-24 09:18 | Outpatient (CLI) | payer MEDICARE, SELFPAY | END 2024-10-24 09:19 | disposition home or self-care (01) | LOC: NFLDREF 10-25 15:40 | PROVIDERS: PCP Physician Assistant Medical; Referring Provider Physician Assistant Medical; Visit Provider Physician Assistant Medical | DX: N39.0 Urinary tract infection, site not specified (principal) | CPT/HCPCS: 87086 ==

== ENCOUNTER 2025-03-16 07:00 | Outpatient (CLI) | payer MEDICARE, SELFPAY | END 2025-03-16 07:01 | disposition home or self-care (01) | LOC: NFLDREF 03-20 12:51 | PROVIDERS: PCP Physician Assistant Medical; Referring Provider Physician Assistant Medical; Visit Provider Physician Assistant Medical | DX: N39.0 Urinary tract infection, site not specified (principal); E78.2 Mixed hyperlipidemia; E03.8 Other specified hypothyroidism; I10 Essential (primary) hypertension; Z13.9 Encounter for screening, unspecified | CPT/HCPCS: 80053; 80061; 84443; 87086 ==